=== PATIENT | female | born 1990 | race Caucasian/White ===

== ENCOUNTER 2017-10-14 12:53 | Inpatient (IN) | payer OTHER ==
[~2017-10-14] VITALS: Ht 157.5 cm; Wt 68.4 kg
[2017-10-14] VITALS (37 sets, daily range): BP systolic 92–148; BP diastolic 44–89
[2017-10-14] MEDS ORDERED: PRENTAB9 PO (13:34)
[2017-10-14] MEDS ORDERED: LACTATED RINGER'S 1000 ML IV STA (16:01)
--- NOTE | 2017-10-14 16:22 | HPEPDOC ---
Obstetrical History & Physical General Date of Admission Oct 14, 2017 at 16:00 History of Present Illness Maci is a 26yo with SIUP at 40wk AURA today 10/14 who presents with ctx since 0200. She called earlier and stated they were then 3-5min apart and getting very strong. She came in for labor check and original SCE was 2/50/-2. After 2 hours, her SCE is now 4/80/-2. Bag intact. She has felt no LOF or seen any VB. She has felt baby moving well. Chief Complaint: Contractions, term Information Provided By: Patient Care Care: Good Care Dating Final EDC: Oct 14, 2017 Final EDC by: 1st trimester (US) Antepartum Course Diagnos(e)s anemia of Height (inches): 62 Pre- weight (lbs.): 128 Admission Weight (lbs.): 154 Change in Weight (lbs.): 26 Past Medical History Past Obstetrical History : Past Obstetrical History: Multigravida Date of Delivery: Apr 19, 2016 Gestation: 41 Type of Delivery: Spontaneous Vaginal Del. Sex of Infant: Female Weight of Infant (grams): 2700 Complications: No CARDIAC RN History: No pertinent history Past Medical History Medical History benign Surgical History: Hernia repair (inguinal, as a child), Golva teeth Family History Significant Family History: No pertinent family hx Social History Marital Status: Family situation: Spouse/partner home Psychosocial History: No pertinent psych hx * Smoker: non-smoker Alcohol: Denies Drugs: denies Imunizations Tdap status: current Influenza Status: declined Allergies Coded Allergies: No Known Allergies (Unverified , 10/14/17) Medications Scheduled Multivitamins/ ( 27-0.8 mg) 1 Tab Tab, 1 TAB PO DAILY Physical Examination Physical Examination GENERAL: Alert and oriented times three. BREAST: . ABDOMEN: Gravid and non-tender to touch. FETUS: Is vertex (VTX) by sterile vaginal examination (SVE) EXTREMITIES: No edema Vital Signs/I&O Vital Signs Date Time Temp Pulse Resp B/P (MAP) Pulse Ox O2 Delivery O2 Flow Rate FiO2 10/14/17 15:08 86 18 111/64 (80) 10/14/17 13:10 97.5 Laboratory Data 24H LABS Laboratory Tests 2 10/14/17 16:04: Serology Scanned Report Hepatitis B Testing CBC/BMP 28wk H/H 11.5/32.8 Urine Culture: No Growth Pertinent Laboratoy Data Blood Type: O+ RBC Antibody Screen: Negative HIV: Negative Hepatitis B: Negative Hepatitis C: Unknown Rapid Plasma Reagin: Nonreactive Rubella: Immune Varicella: Immune Chlamydia/Gonorrhea: Negative Group B Streptococcus: Negative Cystic Fibrosis: Negative Glucose Tolerance Test: 125 Anatomy Ultrasound Ultrasound Date: Jun 05, 2017 Placenta Location: Posterior Normal Anatomy: Yes Placenta Previa: No Steroid Therapy Steroid Therapy: No Vaginal Examination Dilation: 4 cm Effacement: 80+% Station: -2 Cervical Consistency: Soft Cervical Position: Middle Presentation: Cephalic presentation Assessment Heart Rate (FHR): 140 Variability: Moderate Accelerations: Positive Decelerations: None Tocometer Contractions: Yes Frequency: regular, every 3-7 min. Duration: greater than 60 seconds Strength: palpated as moderate Assessment/Plan Assessment Maci is a 26yo with SIUP at 40wk AURA today 10/14 being admitted to L& D in active labor. SCE changed from 1/50/-2 to 4/80/-2 over 2 hours with regular painful ctx. Cat I FHRT. Vitals wnl. Cephalic on SCE. GBS negative. Plan Admit and orient. Counseled and consented for , ok with augmentation if labor stalls (AROM vs pitocin) Diet: clear liquid Group B Streptococcus (GBS) negative Labs and intravenous (IV) per unit protocol. Lactated Ringers (LR): Bolus 1000 mL, then at 125 mL/hr. Anticipate normal spontaneous delivery () Dr. Nellie Dawn MD PerryNellie Bullock MD Oct 14, 2017 16:22
[2017-10-14] MEDS: LR 1,000 ML IV SCH (16:50)
[2017-10-14 16:58] LABS: MEAN CORPUSCULAR HEMOGLOBIN 32.7 pg (27.0-33.0); MEAN CORPUSCULAR HGB CONC 34.2 g/dl (32.0-36.5); MEAN CORPUSCULAR VOLUME 95.7 fl (80.0-96.0); PLATELET COUNT, AUTOMATED 146 10^3/uL (150-450); RED CELL DISTRIBUTION WIDTH 13.1 % (11.5-14.5); WHITE BLOOD COUNT 6.9 10^3/uL (4.0-10.0)
[2017-10-14] MEDS ORDERED: FENTANYL 2MCG/ML ROPIVACAINE 0.2% IN 0.9% NACL 200ML IVBAG As Ordered ONE (17:29)
[2017-10-14] MEDS ORDERED: ONDANSETRON 4MG/2ML VIAL (J2405) IV PRN (18:30)
[2017-10-14] MEDS ORDERED: ePHEDrine SULFATE 25 MG/5 ML(5MG/ML) SYRINGE IV PRN (18:30)
[2017-10-14] MEDS ORDERED: LACTATED RINGER'S 1000 ML IV PRN (18:30)
[2017-10-14] MEDS ORDERED: EPIDURAL COMMENT XX SCH (18:30)
[2017-10-14] MEDS ORDERED: NALOXONE INJ 0.4 MG/1 ML VIAL (J2310) IV PRN (18:30)
[2017-10-14] MEDS ORDERED: REFRIGERATOR IV KEYS XX PRN (18:30)
[2017-10-14] MEDS ORDERED: FENTANYL/ROPIVACAINE/NACL BAG 200 ML EPIDURAL SCH (18:30)
[2017-10-14] MEDS ORDERED: EPIDURAL/PCA KEYS XX PRN (18:30)
[2017-10-14] MEDS ORDERED: diphenhydrAMINE INJ 50MG/ML VIAL (J1200) IV PRN (18:30)
--- NOTE | 2017-10-14 21:44 | IPNPDOC ---
Text Note Date of Service The patient was seen on 10/14/17. NOTE Patient received epidural and was comfortable previously but now feeling pain of contractions in one location on the left side of her abdomen. Anesthesia was notified to provide epidural bolus. Vitals wnl Cat I FHRT w/bl 140's, +accels, -decels, mod orestes Ctx q2-3min SCE now 6/80/-1, AROM performed with moderate meconium noted Will continue to closely monitor Will contact NICU attending for delivery given presence of meconium Safe to proceed Dr. Nellie Dawn MD VS,Lara, I+O VS, Lara I+O Laboratory Tests 10/14/17 16:42 Red Blood Count 3.94 L, Mean Corpuscular Volume 95.7, Mean Corpuscular Hemoglobin 32.7, Mean Corpuscular Hemoglobin Concent 34.2, Red Cell Distribution Width 13.1 Vital Signs Date Time Temp Pulse Resp B/P (MAP) Pulse Ox O2 Delivery O2 Flow Rate FiO2 10/14/17 20:30 89 18 112/58 (76) 10/14/17 18:35 98.0 I&O- Last 24 Hours up to 6 AM 10/15/17 06:00 Output Total 300 ml Balance -300 ml Nellie Dawn MD Oct 14, 2017 21:44
[2017-10-14] MEDS ORDERED: OXYTOCIN 30 UNITS IN 0.9% NaCl 500ML IV BAG (J2590) As Ordered ONE (23:31)
[2017-10-15] VITALS (8 sets, daily range): BP systolic 98–128; BP diastolic 54–64
[2017-10-15] MEDS: LR 1,000 ML IV SCH (00:01)
[2017-10-15] MEDS ORDERED: OXYTOCIN DRIP 30 UNITS in APPROPRIATE DILUENT 1 EA IV SCH (00:07)
[2017-10-15] MEDS ORDERED: ACETAMINOPHEN 500 MG TAB PO PRN (00:15)
[2017-10-15] MEDS ORDERED: RHOGAM 300 MCG (1500 IU) INJ (J2790) IM SCH (00:15)
[2017-10-15] MEDS ORDERED: DOCUSATE SODIUM 100 MG CAP PO PRN (00:15)
[2017-10-15] MEDS ORDERED: MEASLES,MUMPS,RUBELLA VACCINE INJ (MMR-II) (90707) SC SCH (00:15)
[2017-10-15] MEDS ORDERED: DIBUCAINE 1% OINTMENT 30GM TOP PRN (00:15)
--- NOTE | 2017-10-15 00:16 | DNPDOC ---
[facility] Delivery Note Delivery Note DATE OF DELIVERY: 10/14/17 PREDELIVERY DIAGNOSIS: 40 weeks' gestation and labor. POST DELIVERY DIAGNOSIS: Delivered. PROCEDURE: Spontaneous vaginal delivery DOMESTIC HELPER: Dr. Nellie Dawn MD ANESTHESIA: epidural ESTIMATED BLOOD LOSS: 200 mL. FINDINGS: 7 pound 4 ounce F infant, Score 8/9, nuchal cord times 1 DELIVERY SUMMARY: Maci is a 26yo [id number] s/p uncomplicated at 40wk on 10/14/17 at 23:45 after presenting to L&D in active labor. She had an epidural and progressed to C /C/0 at which point she began pushing. She had meconium noted on AROM during her labor course and NICU doctor notified of this prior to delivery. She pushed with 3 contractions and head delivered OA, restituted GABRIEL. Right anterior shoulder delivered easily followed by posterior shoulder and corpus. One nuchal cord reduced prior to delivery of shoulders. Vigorous placed up to maternal chest, spontaneous cry noted, mouth and nares suctioned with bulb suction. Cord clamped x2 and cut by FOB. Cord blood obtained for MBT O pos. With uterine massage and traction on the umbilical cord, placenta delivered spontaneously and intact with 3 vessel centrally inserted cord. Small trailing membrane delivered with aid of ring forcep and sweep of lower uterine segment after revealed no membranes present. Further uterine massage given and pitocin given per protocol with fundus noted firm at u-1cm and no further uterine bleeding. Inspection of vagina and perineum revealed tiny vik-urethral abrasion that was hemostatic and small 2mll that was repaired in usual fashion with 3-0 vicryl. Complete hemostasis noted. Mom and doing well in stable condition. Apgars 8/9. EBL 200ml. Dr. Nellie Dawn MD [place]ie Bullock MD Oct 15, 2017 00:16
[2017-10-15] MEDS: IBUPROFEN 800 MG TAB PO PRN ×3 (01:58→23:27)
--- NOTE | 2017-10-15 08:11 | IPNPDOC ---
Progress Note Date of Service The patient was seen on 10/15/17 at 08:06. Progress Note PPD 1 Maci is a 26yo [id number] s/p uncomplicated at 23:45 on 10/14 after presenting in active labor at 40wk. She is doing well this morning, just having cramping. Tolerated crackers, voiding spontaneously without problem, ambulating no issues. Lochia is moderate. Trying to breast feed- she has concerns regarding possible "tongue tie" of . Denies f/c/n/v/CP/SOB. Vitals wnl, afebrile General: WDWN, resting comfortably in bed Abdomen: soft, ND, appropriately tender over uterus with no rebound/guarding, fundus firm at u-2cm Extremities: no pain with palpation of calves Assessment: 26yo [id number] doing well PPD1 s/p uncomplicated . Vitals wnl, benign exam. Hemodynamically stable with no e/o infection. Plan: -routine post- care -likely discharge tomorrow -motrin/tylenol prn pain -encourage breast feeding -instructed patient to discuss with furnace attendant today in hospital regarding "tongue tie" so that she can best breast feed -undecided on contraception, can address at 6wk PP visit. Briefly discussed LARC. Dr. Nellie Dawn MD [place] RAMESH VS, I&O, 24H, Lara Vital Signs/I&O Vital Signs Date Time Temp Pulse Resp B/P (MAP) Pulse Ox O2 Delivery O2 Flow Rate FiO2 10/15/17 06:00 97.2 77 16 99/58 (72) 99 Room Air Laboratory Data 24H LABS Laboratory Tests 2 10/14/17 16:00: Urine Amphetamines Screen NEGATIVE, Urine Benzodiazepines Screen NEGATIVE, Urine Opiates Screen NEGATIVE, Urine Methadone Screen NEGATIVE, Urine Barbiturates Screen NEGATIVE, Urine Phencyclidine Screen NEGATIVE, Urine Cocaine Metabolite Screen NEGATIVE, Urine Cannabinoids Screen NEGATIVE 10/14/17 16:04: Serology Scanned Report Hepatitis B Testing 10/14/17 16:42: Nucleated Red Blood Cells % (auto) 0.0 CBC/BMP Laboratory Tests 10/14/17 16:42 Red Blood Count 3.94 L, Mean Corpuscular Volume 95.7, Mean Corpuscular Hemoglobin 32.7, Mean Corpuscular Hemoglobin Concent 34.2, Red Cell Distribution Width 13.1 Nellie Dawn MD Oct 15, 2017 08:11
[2017-10-15] MEDS: PRENATAL VITAMINS CHEWABLE TABLET PO SCH (08:15)
[2017-10-16 05:59] VITALS: BP 109/69
[2017-10-16] MEDS ORDERED: ACET50TA PO (07:37)
[2017-10-16] MEDS ORDERED: IBUP-1114 PO (07:37)
[2017-10-16] MEDS ORDERED: NUPE1OIN2 TOP (07:38)
[2017-10-16] MEDS ORDERED: COLA100C5 PO (07:38)
[2017-10-16] MEDS: PRENATAL VITAMINS CHEWABLE TABLET PO SCH (09:59)
--- NOTE | 2017-10-16 10:33 | DSES ---
DATE OF ADMISSION: 10/14/2017 DATE OF DISCHARGE: This lady is a 26-year-old 2, now para 2, at 40 weeks of gestation who presented with contractions. She was found on admission to be 4, 80 and -2. She had a spontaneous vaginal delivery of a live female infant weighing 7 pounds 4 ounces, 3300 grams, Apgars of 8 and 9 at one and five minutes respectively. There was some meconium at artificial rupture of membranes (AROM). She had an epidural in place. On her day, we discussed phlebitis, cystitis, mastitis, endometritis, cellulitis; diet, exercise and pain management; perineal breast and wound care. Hemoglobin 12.9, hematocrit 37.7 and platelets are 146. Blood pressure on discharge is 109/69, respirations 16, pulse 61, and temperature 98. On discharge, she was normocephalic, atraumatic. Neck full range of motion. Pupils equal and reactive to light. Distal pulses symmetric. No evidence of deep vein thrombosis (DVT), pulmonary embolus (PE) or superficial phlebitis. Chest is clear bilaterally at bases. No wheezes or rhonchi. No costovertebral angle (CVA) tenderness. Uterus two below. Lochia is moderate. Four quadrant bowel sounds are noted. She has no rashes, lesions or pruritus. No arthralgia or myalgia. No complaints of cough, wheezes, shortness of breath or dyspnea on exertion. No chest pain, not bleeding. Neuro complete. No incontinency, urgency or frequency. No nausea, vomiting, diarrhea or constipation. She does not smoke, drink or abuse drugs. She is . Good support. No domestic violence. In summary, we have a term gestation who delivered a live female infant who was discharged with medications. All questions were answered. The patient will be seen for a 6-week checkup.
== END 2017-10-16 11:30 | disposition home or self-care (01) | DRG 775 ==
LOC: M LDO 12:53 → M LDI 16:00 → M OBS 10-15 03:12
PROVIDERS: ADMIT Obstetrics & Gynecology; ATTEND Obstetrics & Gynecology
PROC: 10E0XZZ Delivery of Products of Conception, External Approach (ICD-10-PCS; principal; 2017-10-14)
PROC: 10907ZC Drainage of Amniotic Fluid, Therapeutic from Products of Conception, Via Natural or Artificial Opening (ICD-10-PCS; 2017-10-14)
DX: O48.0 Post-term pregnancy (principal); Z37.0 Single live birth; Z3A.40 40 weeks gestation of pregnancy; O77.0 Labor and delivery complicated by meconium in amniotic fluid